=== PATIENT | female | born 1980 | race Two or more races ===

== ENCOUNTER 2019-12-06 17:05 | Inpatient (IN) | payer OTHER ==
[~2019-12-06] VITALS: Ht 175.3 cm; Wt 129.7 kg
[2019-12-06] MEDS ORDERED: MORPHINE SULFATE 4 MG/ML CPJ (NOT FOR IM USE) IV STA (20:24)
[2019-12-06] MEDS ORDERED: ASPIRIN 81MG TABLET PO ONE (20:30)
[2019-12-06 21:05] LABS: BASOPHILS % 0.7 % (0.0-2.0); EOSINOPHILS % 1.7 % (0.0-5.0); HEMATOCRIT. 36.6 % (36.0-48.0); HEMOGLOBIN. 11.5 g/dL (12.0-16.0); LYMPHOCYTES % 15.8 % (20.0-50.0); MEAN CORPUSCULAR VOLUME 79.5 fL (81.0-99.0); MEAN PLATELET VOLUME 7.6 fl (7.4-10.4); MONOCYTES % 6.3 % (2.0-8.0); NEUTROPHILS % 75.5 % (40.0-76.0); PLATELET 397 x1000/uL (130-400); RED CELL DISTRIBUTION WIDTH 26.1 % (11.6-14.6)
[2019-12-06 21:09] LABS: CHLORIDE 107 mEq/L (98-107)
[2019-12-06 21:14] LABS: PARTIAL THROMBOPLASTIN TIME 32.2 sec (23.4-31.0); PROTHROMBIN TIME 10.5 sec (9.6-11.0)
[2019-12-06 21:32] LABS: HCG SCREEN NEGATIVE
[2019-12-06 23:22] LABS: PLATELET ESTIMATE NORMAL
[2019-12-07] MEDS ORDERED: ENOXAPARIN 120MG/0.8ML SYR SUBCUT ONE (00:30)
[2019-12-07 04:26] VITALS: BP 139/77
[2019-12-07] MEDS ORDERED: APIX5TAB PO (04:39)
[2019-12-07] MEDS ORDERED: FERR325T23 PO (04:39)
[2019-12-07] MEDS ORDERED: CLONIDINE 0.2MG TABLET PO PRN (06:45)
[2019-12-07] MEDS ORDERED: ACETAMINOPHEN 325MG TABLET PO PRN (06:45)
[2019-12-07] MEDS ORDERED: HYDROCODONE/ACETAMINOPHEN 5/325MG TABLET PO PRN (06:45)
[2019-12-07 08:00] VITALS: BP 122/71
[2019-12-07 09:05] LABS: BASOPHILS % 0.5 % (0.0-2.0); HEMOGLOBIN. 10.5 g/dL (12.0-16.0); LYMPHOCYTES % 12.2 % (20.0-50.0); MEAN CORPUSCULAR HEMOGLOBIN 25.5 pg (28.0-32.0); MEAN CORPUSCULAR VOLUME 79.8 fL (81.0-99.0); MEAN PLATELET VOLUME 7.8 fl (7.4-10.4); MONOCYTES % 6.5 % (2.0-8.0); NEUTROPHILS % 78.8 % (40.0-76.0); PLATELET 331 x1000/uL (130-400); RED BLOOD CELL COUNT 4.14 mill/uL (4.2-5.4); RED CELL DISTRIBUTION WIDTH 25.7 % (11.6-14.6)
[2019-12-07] MEDS: APIXABAN 5 MG TABLET PO SCH ×2 (09:13→17:40)
[2019-12-07] MEDS: FERROUS SULFATE 325MG TABLET PO SCH (09:13)
[2019-12-07 09:20] LABS: CHLORIDE 108 mEq/L (98-107)
[2019-12-07 12:00] VITALS: BP 120/75
[2019-12-07 16:00] VITALS: BP 116/69
[2019-12-07 20:42] LABS: CREATINE KINASE 46 IU/L (26-192)
[2019-12-07 20:44] LABS: CREATINE KINASE MB FRACTION < 1.0 ng/mL (0.5-3.6)
[2019-12-07 21:00] VITALS: BP 133/80
[2019-12-08] VITALS: BP 135/78
[2019-12-08 04:00] VITALS: BP 138/84
[2019-12-08 08:00] VITALS: BP 142/69
[2019-12-08] MEDS: FERROUS SULFATE 325MG TABLET PO SCH (09:10)
[2019-12-08] MEDS: APIXABAN 5 MG TABLET PO SCH (09:10)
[2019-12-08 09:25] LABS: BASOPHILS % 0.3 % (0.0-2.0); EOSINOPHILS % 0.7 % (0.0-5.0); HEMATOCRIT. 34.1 % (36.0-48.0); HEMOGLOBIN. 10.9 g/dL (12.0-16.0); LYMPHOCYTES % 8.5 % (20.0-50.0); MEAN CORPUSCULAR HEMOGLOBIN 25.4 pg (28.0-32.0); MEAN CORPUSCULAR VOLUME 79.5 fL (81.0-99.0); MEAN PLATELET VOLUME 7.7 fl (7.4-10.4); NEUTROPHILS % 81.5 % (40.0-76.0); PLATELET 323 x1000/uL (130-400); RED BLOOD CELL COUNT 4.29 mill/uL (4.2-5.4); RED CELL DISTRIBUTION WIDTH 25.1 % (11.6-14.6)
[2019-12-08 09:29] LABS: CHLORIDE 107 mEq/L (98-107)
[2019-12-08 09:37] LABS: CREATINE KINASE 32 IU/L (26-192)
[2019-12-08 09:39] LABS: CREATINE KINASE MB FRACTION < 1.0 ng/mL (0.5-3.6)
[2019-12-08 12:00] VITALS: BP 122/73
[2019-12-08 16:18] VITALS: BP 122/73
== END 2019-12-08 17:17 | disposition home or self-care (01) | DRG 175 ==
LOC: ER 17:05 → 7WST 12-07 01:38 → ENRESERV 12-07 02:24 → 5WST 12-07 21:37
PROVIDERS: ADMIT Internal Medicine; ATTEND Internal Medicine
DX: I26.99 Other pulmonary embolism without acute cor pulmonale (principal); J96.00 Acute respiratory failure, unspecified whether with hypoxia or hypercapnia; J18.9 Pneumonia, unspecified organism; Z68.41 Body mass index [BMI] 40.0-44.9, adult; E66.01 Morbid (severe) obesity due to excess calories; Z79.01 Long term (current) use of anticoagulants; Z86.19 Personal history of other infectious and parasitic diseases; Z90.49 Acquired absence of other specified parts of digestive tract; Z98.84 Bariatric surgery status; Z98.891 History of uterine scar from previous surgery; Z20.828 Contact with and (suspected) exposure to other viral communicable diseases
CPT/HCPCS: 36415; 71045; 71275; 80048; 80053; 82550; 82553; 83880; 84484; 84703; 85025; 87635; 93005; 93306; 99285; J1650